=== PATIENT | male | born 1945 | race Caucasian/White ===

== ENCOUNTER 2018-04-02 09:26 | Outpatient (CLI) | payer OTHER ==
--- NOTE | 2018-04-02 16:13 | PET ---
RADIONUCLIDE PET SCAN WITH CT ATTENUATION CORRECTION: HISTORY: Prostate cancer. Initial staging. FINDINGS: Physiologic uptake of radiotracer is present throughout the enteric system and along each urinary tra ct. Heterogeneous uptake at the inferior pole of the left thyroid lobe is apparent with maximum SUV o f 3.7. No focal areas of abnormal radiotracer uptake are otherwise demonstrated. Nondiagnostic CT attenuation correction images show mild atelectasis at the lung bases. Calcification within the arterial structures include in the coronary arteries. Small hiatal hernia. Degenerative c hanges lumbar spine. Diverticula arise from the colon without adjacent inflammation. Dystrophic calci fication projecting inferiorly from the anterior inferior iliac spine is likely associated with repet itive micro trauma of rectus femoris muscle origin. IMPRESSION: 1. No reliable scintigraphic evidence of metastatic disease. 2. Heterogeneously increased uptake left thyroid lobe. Please consider correlation with thyroid sono gram and clinical evaluation. 3. Atherosclerosis. 4. Diverticulosis. POS: [facility]
== END 2018-04-02 09:27 | disposition home or self-care (01) ==
LOC: PET 09:26
DX: C61 Malignant neoplasm of prostate (principal); I70.90 Unspecified atherosclerosis; K57.90 Diverticulosis of intestine, part unspecified, without perforation or abscess without bleeding
CPT/HCPCS: 78815; A9552

== ENCOUNTER 2024-04-06 18:46 | Emergency (ER) | payer OTHER ==
[2024-04-06 19:50] LABS: #Basophils 0.04 10x3/uL (0.0-0.2); %Basophils 0.4 % (0.0-1.0); %Eosinophils 1.1 % (0.0-10.0); %Lymphocytes 6.5 % (21.0-51.0); %Neutrophils 83.7 % (42.0-75.0); Hematocrit 31.9 % (42.0-52.0); Hemoglobin 10.7 g/dL (14.0-18.0); Mean Corpuscular HGB CONC 33.5 g/dL (32.0-36.0); Mean Corpuscular Volume 98.5 fL (78.0-98.0); Mean Platelet Volume 10.1 fL (7.4-10.4); Platelet Count 223 10x3/uL (130-400); RBC Distribution Width 12.5 % (11.5-14.5); Red Blood Cell (RBC) Count 3.24 mill/uL (4.70-6.10)
[2024-04-06] MEDS ORDERED: Morphine 4 MG/ML VIAL ONE (20:05)
[2024-04-06 20:10] LABS: ALT (SGPT) 11 U/L (8-55); AST (SGOT) 18 U/L (5-34); Albumin 3.4 g/dL (3.4-4.8); Alkaline Phosphatase 111 U/L (40-110); Anion Gap 13 mmol/L (10-20); BUN (Urea Nitrogen) 14 mg/dL (8.4-25.7); Bilirubin, Total 0.2 mg/dL (0.2-1.2); Calc. Creatinine Clearance 0 mL/min (70-130); Calcium 8.6 mg/dL (7.8-10.44); Carbon Dioxide 21 mmol/L (23-31); Chloride 99 mmol/L (98-107); Estimated GFR 82; Globulin 2.8 g/dL (2.4-3.5); Glucose 168 mg/dL (83-110); Magnesium 1.5 mg/dL (1.6-2.6); Protein, Total 6.2 g/dL (5.8-8.1); Sodium 129 mmol/L (136-145)
[2024-04-06 20:12] LABS: Troponin I 0.011 ng/mL (< 0.028)
[2024-04-06 20:27] LABS: Bacteria/HPF None Seen HPF (None Seen); Bilirubin Negative (Negative); Blood, Urine Negative (Negative); CAUTI Indications for Culture Alt mental st,lethar; Clarity Clear (Clear); Glucose, Urine (Dipstick) Normal (Negative); Ketone, Urine Negative (Negative); Leukocyte Negative Leu/uL (Negative); Nitrite Negative (Negative); Protein, Urine (Dipstick) Negative (Neg-Trace); RBC/HPF 0-3 HPF (0-3); Specific Gravity, Urine 1.007 (1.002-1.036); Squamous Epithelial None Seen HPF (0-3); Urobilinogen Normal mg/dL (Less than 2); WBC/HPF 0-3 HPF (0-3)
[2024-04-06 20:35] LABS: Urine Culture Reflex No No
[2024-04-06] MEDS ORDERED: Magnesium 2 GM/50 ML BAG (IN WATER) ONE (20:41)
[2024-04-06 22:48] LABS: Troponin I 0.011 ng/mL (< 0.028)
== END 2024-04-06 23:25 | disposition home or self-care (01) ==
LOC: ERS 18:46
DX: R55 Syncope and collapse (principal); E87.1 Hypo-osmolality and hyponatremia; E83.42 Hypomagnesemia; E11.9 Type 2 diabetes mellitus without complications; I10 Essential (primary) hypertension
CPT/HCPCS: 36415; 70450; 71045; 80053; 81001; 83735; 83880; 84443; 84484; 85025; 85610; 85730; 93005; 96374; 96375; J2270; J3475